=== PATIENT | male | born 1960 | race Caucasian/White ===

== ENCOUNTER → 2024-05-27 10:08 | Outpatient (REF) | payer BC, SELFPAY | LOC: HWRAD 10:08 | PROVIDERS: ATTENDING PHYSICIAN Internal Medicine; FAMILY PHYSICIAN Family Medicine | DX: I25.10 Atherosclerotic heart disease of native coronary artery without angina pectoris (principal); I77.810 Thoracic aortic ectasia | CPT/HCPCS: 76770; 93880 ==

== ENCOUNTER 2024-06-23 22:53 | Inpatient (IN) | payer BC, SELFPAY ==
[2024-06-23] VITALS (9 sets, daily range): BP systolic 114–143; BP diastolic 81–94; BMI 25.3; BMI 24.4
--- NOTE | 2024-06-23 20:07 | ED.GENMED ---
History of Present Illness
<Alan Gillespie MD, Resident - Last Filed: 06/24/24 00:14>
General
Chief Complaint: Cardiac Symptoms
Source: patient and spouse
Time Seen by Provider: 06/23/24 19:33
History of Present Illness
History of Present Illness:
63-year-old male, Mr. Masoud Cyr with past medical history significant for hyperlipidemia presented to the ER reporting retrosternal chest pain, since morning. Patient was doing yard work in the morning, mowing his lawn and he started having
chest pain, SOB, palpitations intermittently. Chest pain is like spasms, radiating to the back, associated with tingling sensation in the left arm and palpitations. Patient also felt lightheaded few times after the lawn work, when he is trying to
stand up/sit up from lying down position. All his symptoms have worsened in the afternoon, and came to the ER for getting evaluated. No headaches, vision changes, nausea/vomiting, abdominal pain, calf pain, hematuria, bowel disturbances, no
history of recent travel. Patient has a family history of UT in father at age 62. Patient is a non-smoker, nonalcoholic, drinks decaffeinated coffee.
Patient reports he sees his adult caregiver regularly, last visit was 1 month ago and he states everything was normal.
Past History
<Alan Gillespie MD, Resident - Last Filed: 06/24/24 00:14>
Past History
ED Past Medical History: Hypercholesterolemia
ED Past Surgical History: Cholecystectomy
Social History
Personal:
Living: with family
Phy Exam
<Alan Gillespie MD, Resident - Last Filed: 06/24/24 00:14>
Physical Exam
Physical Exam:
GEN: Well appearing, NAD, WDWN
Eyes: PERRLA, EOMs intact, no scleral icterus
HENT: NCAT, oral mucosa moist, no JVD, no cervical adenopathy.
Lungs: CTAB, no wheezes, rales, rhonchi, normal chest wall excursion
Cardiac: RRR, S1-S2+, no peripheral edema. Radial pulses 2+ bilat
Abdomen: S, NT, ND, NABS, no masses or hepatosplenomegaly
Neuro: AO x 3, no focal deficits to BUE/BLE, normal sensation throughout
Skin: No rashes, petechiae. Normal color, no pallor or jaundice.
Psych: Calm, cooperative, proper hygiene
Scores
<Alan Gillespie MD, Resident - Last Filed: 06/24/24 00:14>
Heart Score for Chest Pain Patients
Heart Score for Chest Pain Patients: 2
Heart Score Risk: 2.5% MACE over next 6 weeks
<Abner Garcia MD - Last Filed: 06/23/24 21:25>
Heart Score for Chest Pain Patients
STEMI patient?: No
History: Slightly or Non-Suspicious
ECG: Normal
Age: >45 - <65 years
Risk Factors: 1 or 2 Risk Factors
Troponin: </= Normal Limit
Heart Score for Chest Pain Patients: 2
Heart Score Risk: 2.5% MACE over next 6 weeks
Course
<Alan Gillespie MD, Resident - Last Filed: 06/24/24 00:14>
Orders/Labs/Results
Orders:
Orders
06/23/24 19:21
Electrocardiogram (*1) Urgent
Reason for Study: Palpitations
06/23/24 20:08
BNP [NT-proBNP] Urgent
CMP [Comprehensive Metabolic Panel] Urgent
Complete Blood Count/With Diff Urgent
Troponin I Urgent
06/23/24 20:16
CR Chest Portable - 1 View Urgent
Comment:
Reason For Exam: chest pain
Reason Study Needs to be Portable: Patient Unstable
06/23/24 20:33
Aspirin Chewable [Low Strength Aspirin] 324 mg PO NOW STA
06/23/24 20:50
D-Dimer Urgent
PTT Urgent
06/23/24 21:20
Aspirin Enteric Coated 325 mg PO NOW STA
06/23/24 21:30
Heparin 12579 Units/250 ml 25,000 units in 250 ml IV PER PROTOCOL
Weight to be used for heparin protocol in kilograms (kg):: 75.6
Protocol:: Cardiac Tx/Acute Coronary
PTT Goal Range to be used:: PTT 73 to 111 seconds
Order type:: Initial
INITIAL Infusion Dose (UNITS/KG/hr) & then follow protocol:: 12 units/kg/hr
Infusion Dose in UNITS/hr & then follow protocol (UNITS/hr):: 900
INFUSION RATE in mL/hr & then follow protocol (mL/hr):: 9
PTT less than or equal to 64 seconds:: Increase rate by 200 units/hr (+ 2 mL/hr)
PTT 64.1 to 72.9 seconds:: Increase rate by 100 units/hr (+ 1 mL/hr)
PTT 73 to 111 seconds:: Target Range. No change in rate.
PTT 111.1 to 130.9 seconds:: Decrease rate by 100 units/hr (- 1 mL/hr)
PTT 131 to 199.9 seconds:: HOLD for 1 hr. Then decrease rate by 200 units/hr (- 2 mL/hr)
PTT greater than or equal to 200 seconds:: HOLD for 2 hrs & Notify Provider. Then decrease by 200 units/hr (-
2 mL/hr)
Lab follow-up:: Each change, PTT q6h until 2 consecutive are therapeutic. Then PTT
daily.
06/23/24 22:07
EKG [Electrocardiogram (*1)] Urgent
Reason for Study: Chest Pain
06/23/24 22:08
Electrocardiogram (*1) Urgent
Reason for Study: Chest Pain
EKG- Treatment ONCE
Nitroglycerin Sublingual [Nitrostat (Sublingual)] 0.4 mg SL NOW STA
06/23/24 22:09
Admit/Transfer Patient As Directed
Co-Sign Provider:
Level of Care: Inpatient admission
Assign to:: IVU
Physician / Group: [facility]/ [facility]
Diagnosis: ACS
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 trend trops ekgs
Expected length of stay greater than two midnights?: Yes
ELOS- Estimated Length of Stay in days: 3
I certify the patient meets the requirements for IP care: Yes
PRN Pain Medication Management As Directed
May give lesser potent ordered pain med per pt: Yes
preference::
Protocol:: Medication orders for pain may be administered in a
manner that supports deferring to patient preference
when the pt is:
-Requesting an ordered lesser potent pain medication.
Least to most potent pain medications are defined as:
acetaminophen < NSAID < tramadol < opioids (morphine,
oxycodone, hydromorphone).
- Requesting a lesser dose of the same medication IF
ORDERED.
- Requesting a less intrusive route of administration
if both routes are prescribed by the provider (PO <
IV).
06/23/24 22:11
Code Status As Directed
Resuscitation Status: Full Code
06/23/24 23:33
Electrocardiogram (*1) Q6H
Reason for Study: Chest Pain
Comment: at admission and Q3H for total of 3, to be done with each troponin
06/23/24 23:33
Echo 2D MMode Color/Doppler Routine
Reason for Study: chest pain
Heparin Protocol- PTT Orders As Directed
PTT per Heparin protocol: -Obtain CBC and baseline PTT - if not already collected.
-Obtain PTT 6 hours from start of infusion. Then, every 6 hours until 2 consecutive
PTT's are therapeutic. Then, PTT Daily.
-With each rate change, obtain PTT every 6 hours until 2 consecutive PTT's are
therapeutic. Then, PTT Daily.
Activity As Directed
Activity Level: Out of Bed-Early Mobility
INT (Intravenous Needle Therapy) As Directed
Comment: maintain peripheral IV access
Intake/ Output As Directed
Frequency: Per unit guidelines
Notify MD As Directed
Notify physician if: PTT is greater than or equal to 200.
Pneumatic Compression Sleeves As Directed
Type: Knee high
Vital Signs As Directed
Frequency: q4h
Weight As Directed
Frequency: Daily
Pulse Ox/spot Check [RESP] Routine
Quantity: 1
Special Instructions: on admission and then every shift if on oxygen
DX Deep Vein Thrombosis Video Routine
06/23/24 23:49
Glycohemoglobin (HgbA1c) Routine
Troponin I Q6H
Comment: at admit & Q3H for 3 total including ED draws, obtain ECG with each level
06/24/24 05:33
Electrocardiogram (*1) Q6H
Reason for Study: Chest Pain
Comment: at admission and Q3H for total of 3, to be done with each troponin
Troponin I Q6H
Comment: at admit & Q3H for 3 total including ED draws, obtain ECG with each level
06/24/24 Breakfast
NPO
Allow oral meds: No
Allow clear liquids: No
NPO with Ice Chips: No
Basic Metabolic Panel IN AM
Cardiovascular Evaluation IN AM
Complete Blood Count/No Diff IN AM
06/24/24 11:33
Electrocardiogram (*1) Q6H
Reason for Study: Chest Pain
Comment: at admission and Q3H for total of 3, to be done with each troponin
Troponin I Q6H
Comment: at admit & Q3H for 3 total including ED draws, obtain ECG with each level
06/24/24 18:00
Enoxaparin Sodium [Lovenox] 40 mg SC QPM
Rosuvastatin Calcium [Crestor] 20 mg PO QPM
06/25/24 06:00
Complete Blood Count/No Diff Q2D
Comment: notify provider: Platelet count < 130,000 or decrease by 50% from baseline
06/27/24 06:00
Complete Blood Count/No Diff Q2D
Comment: notify provider: Platelet count < 130,000 or decrease by 50% from baseline
06/29/24 06:00
Complete Blood Count/No Diff Q2D
Comment: notify provider: Platelet count < 130,000 or decrease by 50% from baseline
07/01/24 06:00
Complete Blood Count/No Diff Q2D
Comment: notify provider: Platelet count < 130,000 or decrease by 50% from baseline
07/03/24 06:00
Complete Blood Count/No Diff Q2D
Comment: notify provider: Platelet count < 130,000 or decrease by 50% from baseline
07/05/24 06:00
Complete Blood Count/No Diff Q2D
Comment: notify provider: Platelet count < 130,000 or decrease by 50% from baseline
07/07/24 06:00
Complete Blood Count/No Diff Q2D
Comment: notify provider: Platelet count < 130,000 or decrease by 50% from baseline
07/09/24 06:00
Complete Blood Count/No Diff Q2D
Comment: notify provider: Platelet count < 130,000 or decrease by 50% from baseline
Abnormal Lab Results
06/23/24
20:08
RBC 4.36 L 10^6/uL
(4.70-6.10)
Hct 37.4 L %
(39.0-52.0)
MCH 31.2 H pg
(27.0-31.0)
Potassium 3.4 L mmol/L
(3.5-5.1)
Glucose 110 H mg/dl
(70-99)
06/23/24 20:08
06/23/24 20:08
Vital Signs
Initial and Last Documented VS:
Initial Vital Signs
Temp Pulse Resp BP Pulse Ox
97.6 F 73 28 127/84 100
06/23/24 19:21 06/23/24 19:21 06/23/24 19:21 06/23/24 19:21 06/23/24 19:21
Last Documented Vital Signs
Temp Pulse Resp BP Pulse Ox
97.8 F 82 20 114/82 99
06/23/24 23:42 06/23/24 23:00 06/23/24 23:42 06/23/24 23:00 06/23/24 23:42
<Abner Garcia MD - Last Filed: 06/23/24 21:25>
Orders/Labs/Results
Orders:
Orders
06/23/24 19:21
Electrocardiogram (*1) Urgent
Reason for Study: Palpitations
06/23/24 20:08
BNP [NT-proBNP] Urgent
CMP [Comprehensive Metabolic Panel] Urgent
Complete Blood Count/With Diff Urgent
Troponin I Urgent
06/23/24 20:16
CR Chest Portable - 1 View Urgent
Comment:
Reason For Exam: chest pain
Reason Study Needs to be Portable: Patient Unstable
06/23/24 20:33
Aspirin Chewable [Low Strength Aspirin] 324 mg PO NOW STA
06/23/24 20:50
D-Dimer Urgent
PTT Urgent
06/23/24 21:20
Aspirin Enteric Coated 325 mg PO NOW STA
06/23/24 21:30
Heparin 54132 Units/250 ml 25,000 units in 250 ml IV PER PROTOCOL
Weight to be used for heparin protocol in kilograms (kg):: 75.6
Protocol:: Cardiac Tx/Acute Coronary
PTT Goal Range to be used:: PTT 73 to 111 seconds
Order type:: Initial
INITIAL Infusion Dose (UNITS/KG/hr) & then follow protocol:: 12 units/kg/hr
Infusion Dose in UNITS/hr & then follow protocol (UNITS/hr):: 900
INFUSION RATE in mL/hr & then follow protocol (mL/hr):: 9
PTT less than or equal to 64 seconds:: Increase rate by 200 units/hr (+ 2 mL/hr)
PTT 64.1 to 72.9 seconds:: Increase rate by 100 units/hr (+ 1 mL/hr)
PTT 73 to 111 seconds:: Target Range. No change in rate.
PTT 111.1 to 130.9 seconds:: Decrease rate by 100 units/hr (- 1 mL/hr)
PTT 131 to 199.9 seconds:: HOLD for 1 hr. Then decrease rate by 200 units/hr (- 2 mL/hr)
PTT greater than or equal to 200 seconds:: HOLD for 2 hrs & Notify Provider. Then decrease by 200 units/hr (-
2 mL/hr)
Lab follow-up:: Each change, PTT q6h until 2 consecutive are therapeutic. Then PTT
daily.
06/23/24 22:07
EKG [Electrocardiogram (*1)] Urgent
Reason for Study: Chest Pain
06/23/24 22:08
Electrocardiogram (*1) Urgent
Reason for Study: Chest Pain
EKG- Treatment ONCE
Nitroglycerin Sublingual [Nitrostat (Sublingual)] 0.4 mg SL NOW STA
06/23/24 22:09
Admit/Transfer Patient As Directed
Co-Sign Provider:
Level of Care: Inpatient admission
Assign to:: IVU
Physician / Group: [facility]/ [facility]
Diagnosis: ACS
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 trend trops ekgs
Expected length of stay greater than two midnights?: Yes
ELOS- Estimated Length of Stay in days: 3
I certify the patient meets the requirements for IP care: Yes
PRN Pain Medication Management As Directed
May give lesser potent ordered pain med per pt: Yes
preference::
Protocol:: Medication orders for pain may be administered in a
manner that supports deferring to patient preference
when the pt is:
-Requesting an ordered lesser potent pain medication.
Least to most potent pain medications are defined as:
acetaminophen < NSAID < tramadol < opioids (morphine,
oxycodone, hydromorphone).
- Requesting a lesser dose of the same medication IF
ORDERED.
- Requesting a less intrusive route of administration
if both routes are prescribed by the provider (PO <
IV).
06/23/24 22:11
Code Status As Directed
Resuscitation Status: Full Code
06/23/24 23:33
Electrocardiogram (*1) Q6H
Reason for Study: Chest Pain
Comment: at admission and Q3H for total of 3, to be done with each troponin
06/23/24 23:33
Echo 2D MMode Color/Doppler Routine
Reason for Study: chest pain
Heparin Protocol- PTT Orders As Directed
PTT per Heparin protocol: -Obtain CBC and baseline PTT - if not already collected.
-Obtain PTT 6 hours from start of infusion. Then, every 6 hours until 2 consecutive
PTT's are therapeutic. Then, PTT Daily.
-With each rate change, obtain PTT every 6 hours until 2 consecutive PTT's are
therapeutic. Then, PTT Daily.
Activity As Directed
Activity Level: Out of Bed-Early Mobility
INT (Intravenous Needle Therapy) As Directed
Comment: maintain peripheral IV access
Intake/ Output As Directed
Frequency: Per unit guidelines
Notify MD As Directed
Notify physician if: PTT is greater than or equal to 200.
Pneumatic Compression Sleeves As Directed
Type: Knee high
Vital Signs As Directed
Frequency: q4h
Weight As Directed
Frequency: Daily
Pulse Ox/spot Check [RESP] Routine
Quantity: 1
Special Instructions: on admission and then every shift if on oxygen
DX Deep Vein Thrombosis Video Routine
06/23/24 23:49
Glycohemoglobin (HgbA1c) Routine
Troponin I Q6H
Comment: at admit & Q3H for 3 total including ED draws, obtain ECG with each level
06/24/24 05:33
Electrocardiogram (*1) Q6H
Reason for Study: Chest Pain
Comment: at admission and Q3H for total of 3, to be done with each troponin
Troponin I Q6H
Comment: at admit & Q3H for 3 total including ED draws, obtain ECG with each level
06/24/24 Breakfast
NPO
Allow oral meds: No
Allow clear liquids: No
NPO with Ice Chips: No
Basic Metabolic Panel IN AM
Cardiovascular Evaluation IN AM
Complete Blood Count/No Diff IN AM
06/24/24 11:33
Electrocardiogram (*1) Q6H
Reason for Study: Chest Pain
Comment: at admission and Q3H for total of 3, to be done with each troponin
Troponin I Q6H
Comment: at admit & Q3H for 3 total including ED draws, obtain ECG with each level
06/24/24 18:00
Enoxaparin Sodium [Lovenox] 40 mg SC QPM
Rosuvastatin Calcium [Crestor] 20 mg PO QPM
06/25/24 06:00
Complete Blood Count/No Diff Q2D
Comment: notify provider: Platelet count < 130,000 or decrease by 50% from baseline
06/27/24 06:00
Complete Blood Count/No Diff Q2D
Comment: notify provider: Platelet count < 130,000 or decrease by 50% from baseline
06/29/24 06:00
Complete Blood Count/No Diff Q2D
Comment: notify provider: Platelet count < 130,000 or decrease by 50% from baseline
07/01/24 06:00
Complete Blood Count/No Diff Q2D
Comment: notify provider: Platelet count < 130,000 or decrease by 50% from baseline
07/03/24 06:00
Complete Blood Count/No Diff Q2D
Comment: notify provider: Platelet count < 130,000 or decrease by 50% from baseline
07/05/24 06:00
Complete Blood Count/No Diff Q2D
Comment: notify provider: Platelet count < 130,000 or decrease by 50% from baseline
07/07/24 06:00
Complete Blood Count/No Diff Q2D
Comment: notify provider: Platelet count < 130,000 or decrease by 50% from baseline
07/09/24 06:00
Complete Blood Count/No Diff Q2D
Comment: notify provider: Platelet count < 130,000 or decrease by 50% from baseline
Abnormal Lab Results
06/23/24
20:08
RBC 4.36 L 10^6/uL
(4.70-6.10)
Hct 37.4 L %
(39.0-52.0)
MCH 31.2 H pg
(27.0-31.0)
Potassium 3.4 L mmol/L
(3.5-5.1)
Glucose 110 H mg/dl
(70-99)
06/23/24 20:08
06/23/24 20:08
Vital Signs
Initial and Last Documented VS:
Initial Vital Signs
Temp Pulse Resp BP Pulse Ox
97.6 F 73 28 127/84 100
06/23/24 19:21 06/23/24 19:21 06/23/24 19:21 06/23/24 19:21 06/23/24 19:21
Last Documented Vital Signs
Temp Pulse Resp BP Pulse Ox
97.8 F 82 20 114/82 99
06/23/24 23:42 06/23/24 23:00 06/23/24 23:42 06/23/24 23:00 06/23/24 23:42
<Alan Gillespie MD, Resident - Last Filed: 06/24/24 00:14>
MDM/Problems Addressed
Differential Diagnosis Includes:
ACS versus aortic dissection VS stable angina versus vasospastic angina versus pericarditis versus PE.
MDM/Problems Addressed:
Patient is currently asymptomatic during the encounter.
Normotensive at presentation.
EKG�normal sinus rhythm.
CBC, CMP unremarkable except for mild hypokalemia at 3.4, and hyperglycemia at 110.
Troponins normal.
<Alan Gillespie MD, Resident - Last Filed: 06/24/24 00:14>
*Critical Care Note
Total Time (30-74mins, 75-104mins- exclusive of procedures): Not Applicable
ED Attending Note
<Alan Gillespie MD, Resident - Last Filed: 06/24/24 00:14>
-
Portions of this chart may have been created with voice recognition software.� Occasional wrong word or��sound alike� substitutions may have occurred due to the inherent limitations of voice recognition software.
<Abner Garcia MD - Last Filed: 06/23/24 21:25>
ED Attending Note
Patient seen and examined by attending physician: Yes
ED Attending Note:
Patient with history of hypercholesterolemia, presents to ED secondary to sudden onset of chest pain, around 1:30 PM, after he had worked outdoors for approximately 2 hours. Chest pain described as 'spasm', in the middle of chest, nonradiating,
associated with shortness of breath, without any alleviating or exacerbate factors. Denies diaphoresis or nausea. Denies dizziness. Denies back pain. Denies leg pain or swelling. Denies previous history of similar symptoms. Denies smoking.
There is family history heart disease, with his father having had UT at age of 62. Patient states that chest pain has been intermittent, with each episode lasting few minutes at a time. At the time of evaluation ED, patient is without any chest
pain.
Physical Exam
General: no apparent distress, not acutely ill. afebrile.
Head: nc/at. eomi
Neck: supple. no meningeal signs.
Heart: s1/s2 regular rate and rhythm, no murmur. equal radial pulses.
Lungs: no acute respiratory distress. clear bilaterally. chest wall nontender to palpation.
Abdomen: normal bowel sounds. not tender. chest wall nontender to palpation.
Neuro: alert and oriented. no focal neurological deficits
Skin: no rash
Psychiatric: well kept. interactive and cooperative
Extremities: no edema. no calf tenderness. good distal pulses
Patient remained chest pain-free during observation ED, along with unremarkable initial workup. However, patient has been having more frequent episodes prior to presentation to ED, along with family history of heart disease.
Chest calcium score noted to be elevated when obtained in 2021.
Discussed with Dr. Wilkerson, on-call cardiology. Recommends starting patient on aspirin along with heparin protocol, for possible cardiac catheterization in a.m.
Discharge Plan
Departure
Patient Disposition: Admit
Date of Disposition: 06/23/24
Time of Disposition: 21:22
Admit to: IVU
Presentation/result/management discussed w/ accepting MD/DO:
Discharge Problem:
Chest pain
Interventions
Interventions:
*Risk Screen - Suicide Last Done: 06/23/24 19:21
*General Assessment Last Done: 06/23/24 20:07
*Neglect/Abuse Screening Last Done: 06/23/24 19:21
*ED COVID-19 Vaccine History Last Done: 06/23/24 23:46
*Nursing Disposition Last Done: 06/23/24 23:20
ED- Pulmonary Assessment Last Done: 06/23/24 20:10
ED- Cardiac Assessment Last Done: 06/23/24 20:10
Discharge Date and Time
Discharge Date/Time: 06/23/24 23:21
[2024-06-23 20:19] LABS: % Basophils 0.3 % (0-2); % Eosinophils 1.3 % (0-6); % Immature Granulocytes 0.3 % (0-0.5); % Lymphocytes 29.1 % (20.5-51.1); % Monocytes 5.1 % (1.7-9.3); % Neutrophils 63.9 % (42.2-75.2); Absolute Eosinophils 0.1 10^3/uL (0-0.7); Absolute Monocytes 0.3 10^3/uL (0.1-0.6); Absolute Neutrophils 4.3 10^3/uL (1.4-6.5); Hematocrit 37.4 % (39.0-52.0); Hemoglobin 13.6 g/dL (13.0-18.0); Mean Corp Hgb Conc. 36.4 g/dL (33.0-37.0); Mean Corpuscular Hgb 31.2 pg (27.0-31.0); Mean Corpuscular Volume 85.8 fL (80.0-94.0); Mean Platelet Volume 9.8 fL (7.4-10.4); Nucleated Red Blood Cells % 0 % (-); Platelet Count 146 10^3/uL (130-400); Red Blood Cell Count 4.36 10^6/uL (4.70-6.10); Red Cell Dist. Width 11.9 % (11.5-14.5); White Blood Cell Count 6.7 10^3/uL (4.8-10.8)
[2024-06-23 20:31] LABS: ALT (SGPT) 16 U/L (0-50); AST (SGOT) 26 U/L (17-59); Albumin 4.6 g/dl (3.5-5.0); Alkaline Phosphatase 54 U/L (38-126); Blood Urea Nitrogen 17 mg/dl (9-20); Calcium 9.7 mg/dl (8.4-10.2); Carbon Dioxide 23 mmol/L (22-30); Chloride 105 mmol/L (98-107); Estimated Creatinine Clearance 93 ml/min; Glucose 110 mg/dl (70-99); Potassium 3.4 mmol/L (3.5-5.1); Sodium 137 mmol/L (135-145); Total Bilirubin 1.2 mg/dl (0.2-1.3); eGFR > 60.00
[2024-06-23 20:41] LABS: NT-proBNP 27.3 pg/ml; Troponin I < 0.012 ng/ml
[2024-06-23 21:11] LABS: D-Dimer < 0.27 ug/mlFEU (0.00-0.50)
[2024-06-23] MEDS: ASPIRIN ENTERIC COATED 325 MG PO (21:30)
[2024-06-23 21:38] LABS: APTT 26.5 Sec (23.4-35.0)
[2024-06-23] MEDS: HEPARIN 25000 UNITS/250 ML IV (21:51)
--- NOTE | 2024-06-23 23:45 | W.PN.UPDATE ---
Update Note
Progress Note Update
Admission orders placed for this patient. Will be transferred to IVU.
[2024-06-24] VITALS (10 sets, daily range): BP systolic 100–131; BP diastolic 64–80; BMI 24.4
[2024-06-24 00:22] LABS: Troponin I < 0.012 ng/ml
--- NOTE | 2024-06-24 00:42 | PTCARENOTE ---
Pt admitted to IVU ~2340. HR SR. Pt denying any pain or lightheadedness/dizziness. Heparin infusing at 900u/hr. Oriented pt to unit, pt belongings w/ pt. at bedside. Updated pt on plan of care, pt states understanding. CAD booklet given to pt.
Potassium 3.4, spoke with CVNP sue - K supplementation; See MAR. Informed pt to notify RN if any CP, lightheadedness, dizziness, or SOB. Call silva within reach.
[2024-06-24] MEDS: KCL 40 MEQ PO (01:03)
[2024-06-24 05:07] LABS: Hematocrit 38.6 % (39.0-52.0); Hemoglobin 13.8 g/dL (13.0-18.0); Mean Corp Hgb Conc. 35.8 g/dL (33.0-37.0); Mean Corpuscular Hgb 30.9 pg (27.0-31.0); Mean Corpuscular Volume 86.4 fL (80.0-94.0); Mean Platelet Volume 9.8 fL (7.4-10.4); Platelet Count 145 10^3/uL (130-400); Red Blood Cell Count 4.47 10^6/uL (4.70-6.10)
[2024-06-24 05:10] LABS: APTT 61.7 Sec (23.4-35.0)
[2024-06-24 05:21] LABS: Troponin I < 0.012 ng/ml
[2024-06-24 05:40] LABS: Blood Urea Nitrogen 15 mg/dl (9-20); Calcium 9.6 mg/dl (8.4-10.2); Carbon Dioxide 22 mmol/L (22-30); Chloride 108 mmol/L (98-107); Estimated Creatinine Clearance 106 ml/min; Glucose 93 mg/dl (70-99); HDL Cholesterol 41 mg/dl; LDL Cholesterol, Calculated 53 mg/dl; Potassium 4.1 mmol/L (3.5-5.1); Sodium 140 mmol/L (135-145); Total Cholesterol 107 mg/dl (50-199); Triglyceride 67 mg/dl (10-149); Very Low Density Lipoprotein 13 mg/dl (0-30); eGFR > 60.00
--- NOTE | 2024-06-24 08:17 | HPS.HSE ---
Addendum entered and electronically signed by Hilario Beavers MD 06/24/24 12:41:
I saw and examined the patient.
The NURSE PRACTITIONER PER DIEM's note was reviewed and I agree with the note.
Comment: 63 y/o male with CAD (by severely elevated calcium score), dyslipidemia, abnormal EKG (inferior infarct), iRBBB, mildly dilated aortic root 4.0 cm who is here for evaluation of epigastric discomfort.
He has risk factors for CAD and given likely association with this after exertion yesterday concern for unstable angina is present.
- coronary angiography
- further recs to follow
Original Note:
Family Physician
-
Family Physician: Eddie Enriquez
Chief Complaint
-
epigastric discomfort
History of Present Illness
63 y/o male with CAD (by severely elevated calcium score), dyslipidemia, abnormal EKG (inferior infarct), iRBBB, mildly dilated aortic root 4.0 cm who is here for evaluation of epigastric discomfort. Briefly, yesterday AM he did yard work for a few
hours and felt fine. Later in the day, around 2 PM, he developed intermittent epigastric spasms that would take his breath away momentarily. This continued until he came to the IVU around [place]. He is pain free and in no distress at the time of my
assessment.
Medical History
Past Medical History
Past Medical History: Reports CAD, Hypercholesterolemia and Other (as abolve)
Past Surgical History: Reports Other (gall bladder surgery)
Social History
Tobacco: Non-smoker
Personal:
Living: With Family
Family History
Family History: CAD (dad UT age 61-62)
Allergies / Home Medications
Allergies reflects when Allergies were last updated in [facility].
Home Medications with original date entered in [facility]
Allergy/Medication List:
Allergies: aspirin (nausea)- but enteric coated is fine for him and he takes 81 mg daily
Medications: aspirin 81 mg PO daily
coenzyme Q10 100 mg PO daily
Rosuvastatin 20 mg PO QPM
Review of Systems
-
History Source: Patient
A 12 point ROS was completed and negative except as noted: Yes
Respiratory: Reports Trouble Breathing (as described)
Cardiac: Reports Chest Pain (as described)
Physical Exam
Vital Signs
Vital Signs
Temp Pulse Resp BP Pulse Ox
98.2 F 71 20 109/77 99
06/24/24 07:04 06/24/24 04:09 06/24/24 07:04 06/24/24 04:09 06/24/24 07:04
Physical Exam
General: Well Developed, Well Nourished and No Apparent Distress
HEENT: NormoCephalic and Anicteric
Respiratory: Clear and Non Labored Respirations
Cardiac: Regular Rhythm
Skin: Warm and Dry
Neuro: AO x 3
Psych: Calm
Laboratory Results
-
06/24/24 04:41
06/24/24 04:41
Laboratory Results
APTT 61.7 Sec (23.4-35.0) H 06/24/24 04:41
Total Bilirubin 1.2 mg/dl (0.2-1.3) 06/23/24 20:08
AST 26 U/L (17-59) 06/23/24 20:08
ALT 16 U/L (0-50) 06/23/24 20:08
Alkaline Phosphatase 54 U/L (38-126) 06/23/24 20:08
Troponin I Cancelled 06/24/24 11:33
Data Reviewed
-
Diagnostic Radiology: Report Reviewed by me (No evidence of active cardiopulmonary disease.)
Medical Tests (Nuc Med, Echo, EKG etc): Image Personally Visualized and interpreted (EKG NSR 66 BPM) and Report Reviewed by me (echo 05/26/22: Normal left ventricular size, wall thickness and systolic function. Estimated ejection fraction is
55-60%. No significant valvular disease.)
Lab Data: Labs Reviewed by me
Impression/Plan
-
IMPRESSION/PLAN:
Unstable angina:
-this diagnosis is threat to life
-currently CP free
-EKG's without evidence for ischemia. Troponin levels are normal. Echo this AM pending
-on heparin drip (continue for now- this medication requires intensive monitoring for toxicity). Continue ASA- full dose given in ED. Plan for cardiac cath today.
-hgbA1C is pending
CAD:
-coronary calcium score 2021: 684
-Continue ASA and statin
-eval as above
Dyslipidemia:
-stable LDL 53
-continue statin
Hypokalemia:
-replaced and normal now
[2024-06-24] MEDS: ASPIR LOW (ENTERIC COATED) 81 MG PO (08:50)
[2024-06-24 10:44] LABS: Glycohemoglobin (HgbA1c) 5.3 % (4.0-5.6)
[2024-06-24 12:43] LABS: APTT 86.7 Sec (23.4-35.0)
--- NOTE | 2024-06-24 13:35 | PTCARENOTE ---
received patient this am lying in bed with no complaints, at bedside. monitor shows NSR, VSS, IV heparin @ 1100units an hour via left ac infusing well. patient had Echo at bedside. patient will remain NPO for cath today.
[2024-06-24 14:51] LABS: ACT-LR - POC 339 Seconds (116-155)
--- NOTE | 2024-06-24 15:38 | ITS.CL.CATH ---
[employer] - Catheterization
Cardiac Catheterization
Procedure Report:
CARDIAC CATHETERIZATION REPORT
Date of Procedure: 06/24/2024
Referring: Hilario Beavers MD
Indication: Rest chest discomfort with normal cardiac enzymes in patient with history of nonischemic stress test
�
HEMODYNAMIC DATA
AO: 158/100
LV: 158/15
�
LEFT VENTRICULOGRAPHY: Normal left ventricular function with visually estimated EF 65%
�
CORONARY ANGIOGRAPHY
Dominance: Right
Left Main: Very mild distal tapering
LAD: Severe calcification of the proximal LAD with tandem 60% proximal LAD stenoses and otherwise mild luminal irregularities
Circumflex: Mild luminal irregularities
RCA: Mild luminal irregularities
FloWire assessment: At the conclusion of the diagnostic study, the patient underwent FloWire assessment of the LAD. Heparin was used for anticoagulation. An EBU 3.75 guide catheter was used. A MeMeMe pressure wire was advanced into the distal
LAD. iFR measurements were 0.90, 0.91, and 0.91. Though technically negative for flow-limiting disease, these measurements are considered equivocal prompting us to perform FFR. The resting FFR was 0.94. Following an adenosine infusion at 140
mcg/kg/min for 2 minutes, the FFR fell to 0.81. This is consistent with nonflow-limiting disease
�
Closure Device: None-the procedure was performed via the right radial artery. The Hal's test was normal prior to the procedure.
�
Radiation (mGy): 203
DAP (cm2.Gy): 14.8
Fluoroscopy time: 5.3 minutes
�
CONCLUSIONS
1:� Systemic hypertension
2:� Normal left ventricular function with EF 65%
3. Single-vessel CAD as described. The iFR of 0.90 and FFR 0.81 do not meet the ischemic threshold to recommend revascularization
4. Recommend continued aggressive risk factor modification. LDL cholesterol is well-controlled at 56 on rosuvastatin 20 mg daily. I have suggested he purchase a home blood pressure cuff and obtain and record daily AM measurements
5. Patient has been advised to maintain a regular program of exercise and to monitor for the possible development of ischemic symptoms which would prompt reevaluation and probable LAD PCI
�
�
Copy to: Efra Grossman MD, PhD, Eddie Enriquez DO ([place], [place])
�
Silvano Keller MD, FAC, [facility]
--- NOTE | 2024-06-24 16:25 | CM ---
Reviewed chart. Met with Mr and Mrs. Cyr to review discharge plans. He states prior to admission he resides with his spouse in a three story home with two steps to enter. He states he has a bedroom/bathroom on each level. He states prior to
admission he was independent with ambulation and adls. He states he does not have any DME in the home. He states he has a prescription plan and uses [facility]. Medical work-up in progress. The discharge plan is to return home with his spouse
when medically stable.
--- NOTE | 2024-06-24 16:47 | W.DS.TRANS ---
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
-
Discharge Instructions:
Discharge Diagnosis/Procedures Cardiac catheterization
Diet Low Cholesterol
Driving Restrictions No driving for 24 hours
Instructions:
Stand-Alone Forms: DC Instructions- Cath/EP Lab
Changes to Home Medications: Yes
Discharge Medications:
DC Medications w/original date entered in [employer]
aspirin 81 mg chewable tablet 81 mg PO DAILY 06/23/24
coenzyme Q10 100 mg capsule (CoQ-10) 100 mg PO DAILY 06/23/24
rosuvastatin 20 mg tablet 20 mg PO QPM 06/23/24
nitroglycerin 0.4 mg sublingual tablet 0.4 mg sublingual [id number] PRN chest pain #25 tabs 06/24/24
Home Medication Changes
NEW: nitrostat
Pending Results: No
[2024-06-24] MEDS: CRESTOR 20 MG PO (16:51)
--- NOTE | 2024-06-24 19:08 | PTCARENOTE ---
D/C instructions given to patient and , both verbalizes understanding. INT D/C'd, telemetry D/C'd, personal belongings packed and sent home with patient. D/C to home via wc accompanied by staff.
== END 2024-06-24 19:00 | disposition home or self-care (01) | DRG 287 ==
LOC: IVU 22:53
PROVIDERS: Emergency Medicine; Internal Medicine Cardiovascular Disease; Registered Nurse; ADMITTING PHYSICIAN Internal Medicine Cardiovascular Disease; EMERGENCY PHYSICIAN Emergency Medicine; FAMILY PHYSICIAN Family Medicine
PROC: 4A033BC Measurement of Arterial Pressure, Coronary, Percutaneous Approach (ICD-10-PCS; 2024-06-24)
PROC: B2111ZZ Fluoroscopy of Multiple Coronary Arteries using Low Osmolar Contrast (ICD-10-PCS; 2024-06-24)
PROC: 4A023N7 Measurement of Cardiac Sampling and Pressure, Left Heart, Percutaneous Approach (ICD-10-PCS; 2024-06-24)
PROC: B2151ZZ Fluoroscopy of Left Heart using Low Osmolar Contrast (ICD-10-PCS; 2024-06-24)
DX: I25.110 Atherosclerotic heart disease of native coronary artery with unstable angina pectoris (principal); I10 Essential (primary) hypertension
CPT/HCPCS: 71045; 80048; 80053; 80061; 83036; 83880; 84484; 85025; 85027; 85347; 85379; 85730; 93005; 93306; 93458; 93571; 96374; 99285; C1769; C1894; J0153; Q9967

== ENCOUNTER 2024-08-01 15:47 | Emergency (ER) | payer BC, SELFPAY ==
[2024-08-01 15:50] VITALS: BP 143/83; BMI 25.8
[2024-08-01 16:04] LABS: % Basophils 0.4 % (0-2); % Eosinophils 1.6 % (0-6); % Immature Granulocytes 0.4 % (0-0.5); % Lymphocytes 27.8 % (20.5-51.1); % Monocytes 4.7 % (1.7-9.3); % Neutrophils 65.1 % (42.2-75.2); Absolute Eosinophils 0.1 10^3/uL (0-0.7); Absolute Lymphocytes 1.9 10^3/uL (1.2-3.4); Absolute Monocytes 0.3 10^3/uL (0.1-0.6); Absolute Neutrophils 4.4 10^3/uL (1.4-6.5); Hematocrit 38.8 % (39.0-52.0); Hemoglobin 13.7 g/dL (13.0-18.0); Mean Corp Hgb Conc. 35.3 g/dL (33.0-37.0); Mean Corpuscular Hgb 30.7 pg (27.0-31.0); Mean Platelet Volume 10.2 fL (7.4-10.4); Nucleated Red Blood Cells % 0 % (-); Platelet Count 158 10^3/uL (130-400); Red Blood Cell Count 4.46 10^6/uL (4.70-6.10); Red Cell Dist. Width 13.1 % (11.5-14.5); White Blood Cell Count 6.8 10^3/uL (4.8-10.8)
--- NOTE | 2024-08-01 16:10 | ED.GENMED ---
History of Present Illness
General
Chief Complaint: Chest Pain
Time Seen by Provider: 08/01/24 15:54
History of Present Illness
History of Present Illness:
64-year-old coronary artery disease presents to the emergency department for evaluation of acute onset chest pain, palpitations and near syncope that developed at 1530 today. Symptoms have since improved. States that the symptoms were not
comparable to his prior angina that led to a cardiac catheterization on June 24 showing mild disease in the LAD approximately 60%, at that time no coronary interventions were undertaken. He has been compliant with his medications at home.
Past History
Past History
ED Past Medical History: Hypercholesterolemia
ED Past Surgical History: Cholecystectomy
Social History
Personal:
Living: with family
Review of Systems
Review of Systems
Allergies reviewed?: Yes
All Other Systems: ROS reviewed and negative except as documented in HPI and ROS
Phy Exam
Physical Exam
Physical Exam:
GEN: Well appearing, NAD, WDWN
HEENT: Oral mucosa moist, no scleral icterus
Cardiac: Regular rate and rhythm, no murmurs
Lung: No respiratory distress, no tachypnea, lungs clear to auscultation bilaterally
MSK: No gross deformity or injuries
Skin: Good color, no pallor or jaundice, no rashes
Neuro: AO x3, moves all extremities freely
Psych: Calm, cooperative
Scores
Heart Score for Chest Pain Patients
STEMI patient?: No
History: Moderately Suspicious
ECG: Normal
Age: >45 - <65 years
Risk Factors: >/= 3 Risk Factors or History of CAD
Troponin: </= Normal Limit
Heart Score for Chest Pain Patients: 4
Heart Score Risk: 20.3% MACE over next 6 weeks
Course
Orders/Labs/Results
Orders:
Orders
08/01/24 15:54
Electrocardiogram (*1) Urgent
Reason for Study: Chest Pain
EKG- Treatment ONCE
08/01/24 15:56
Complete Blood Count/With Diff Urgent
Comprehensive Metabolic Panel Urgent
Troponin I Urgent
08/01/24 16:38
EKG- Treatment ONCE
08/01/24 19:00
EKG [Electrocardiogram (*1)] Routine
Reason for Study: Chest Pain
Troponin I Routine
Abnormal Lab Results
08/01/24
15:56
RBC 4.46 L 10^6/uL
(4.70-6.10)
Hct 38.8 L %
(39.0-52.0)
Carbon Dioxide 20 L mmol/L
(22-30)
08/01/24 15:56
08/01/24 15:56
Vital Signs
Initial and Last Documented VS:
Initial Vital Signs
Temp Pulse Resp BP Pulse Ox
98.8 F 89 19 143/83 100
08/01/24 15:50 08/01/24 15:50 08/01/24 15:50 08/01/24 15:50 08/01/24 15:50
Last Documented Vital Signs
Temp Pulse Resp BP Pulse Ox
98.8 F 84 23 143/78 96
08/01/24 15:50 08/01/24 20:00 08/01/24 20:00 08/01/24 20:00 08/01/24 20:00
MDM/Problems Addressed
MDM/Problems Addressed:
Patient's initial and delta troponins were reassuring. He had no further episodes comparable to his initial presenting symptom while in the emergency department. No events detected on telemetry. Recommend close cardiology follow-up
Comment
Comment:
EKG independently interpreted by me shows normal sinus rhythm with no ST changes concerning for ischemia
*Critical Care Note
Total Time (30-74mins, 75-104mins- exclusive of procedures): Not Applicable
ED Attending Note
-
Portions of this chart may have been created with voice recognition software.� Occasional wrong word or��sound alike� substitutions may have occurred due to the inherent limitations of voice recognition software.
Discharge Plan
Departure
Patient Disposition: Home (Routine Discharge)
Date of Disposition: 08/01/24
Time of Disposition: 19:58
Patient with high blood pressure during this ER visit?: No
Discharge Problem:
Chest pain
Instructions: Chest Pain CBC Follow Up
Prescriptions:
No Action
aspirin 81 mg Tablet,Chewable
81 mg PO DAILY
rosuvastatin 20 mg Tablet
20 mg PO QPM
coenzyme Q10 [CoQ-10] 100 mg Capsule
100 mg PO DAILY
nitroglycerin 0.4 mg tablet, sublingual
0.4 mg sublingual [id number] PRN (Reason: chest pain) Qty: 25 2RF
Referrals:
Eddie Enriquez DO [Family Provider] -
Interventions
Interventions:
*Risk Screen - Suicide Last Done: 08/01/24 15:54
*General Assessment Last Done: 08/01/24 15:54
*Neglect/Abuse Screening Last Done: 08/01/24 15:54
ED- Fall Risk Assessment Last Done: 08/01/24 18:30
*ED COVID-19 Vaccine History Last Done: 08/01/24 15:54
*Nursing Disposition Last Done: 08/01/24 20:06
ED- Cardiac Assessment Last Done: 08/01/24 16:00
Discharge Date and Time
Discharge Date/Time: 08/01/24 20:06
Print Language: ROMANSH
[2024-08-01 16:24] LABS: ALT (SGPT) 21 U/L (0-50); AST (SGOT) 31 U/L (17-59); Albumin 4.7 g/dl (3.5-5.0); Alkaline Phosphatase 52 U/L (38-126); Blood Urea Nitrogen 14 mg/dl (9-20); Calcium 9.8 mg/dl (8.4-10.2); Carbon Dioxide 20 mmol/L (22-30); Chloride 104 mmol/L (98-107); Estimated Creatinine Clearance 91 ml/min; Glucose 93 mg/dl (70-99); Potassium 3.8 mmol/L (3.5-5.1); Sodium 144 mmol/L (135-145); Total Bilirubin 1.3 mg/dl (0.2-1.3); Total Protein 7.1 g/dl (6.3-8.2); eGFR > 60.00
[2024-08-01 16:31] LABS: Troponin I < 0.012 ng/ml
[2024-08-01 17:00] VITALS: BP 139/75
[2024-08-01 18:00] VITALS: BP 127/72
[2024-08-01 19:00] VITALS: BP 122/72
[2024-08-01 19:30] LABS: Troponin I < 0.012 ng/ml
[2024-08-01 20:00] VITALS: BP 143/78
== END 2024-08-01 20:06 | disposition home or self-care (01) ==
LOC: EMR 15:47
PROVIDERS: Physician Assistant; EMERGENCY PHYSICIAN Student in an Organized Health Care Education/Training Program; FAMILY PHYSICIAN Family Medicine
DX: R07.89 Other chest pain (principal)
CPT/HCPCS: 99284; 80053; 84484; 85025; 93005

== ENCOUNTER → 2024-09-24 13:06 | Outpatient (REF) | payer BC, SELFPAY | LOC: RAD 13:06 | PROVIDERS: ATTENDING PHYSICIAN Internal Medicine; FAMILY PHYSICIAN Family Medicine | DX: I25.10 Atherosclerotic heart disease of native coronary artery without angina pectoris (principal); M79.604 Pain in right leg; M79.605 Pain in left leg | CPT/HCPCS: 93922; 93925 ==

== ENCOUNTER → 2025-04-29 12:00 | Outpatient (REF) | payer BC, SELFPAY | LOC: RAD 12:00 | PROVIDERS: ATTENDING PHYSICIAN Family Medicine | DX: M62.50 Muscle wasting and atrophy, not elsewhere classified, unspecified site (principal); R63.4 Abnormal weight loss; M54.9 Dorsalgia, unspecified; G89.29 Other chronic pain; M54.50 Low back pain, unspecified; R10.9 Unspecified abdominal pain | CPT/HCPCS: 74177; Q9967 ==

== ENCOUNTER → 2025-05-06 11:16 | Outpatient (REF) | payer BC, SELFPAY | LOC: HWRAD 11:16 | PROVIDERS: ATTENDING PHYSICIAN Family Medicine | DX: N28.1 Cyst of kidney, acquired (principal) | CPT/HCPCS: 76770 ==

== ENCOUNTER → 2025-06-18 10:17 | Outpatient (REF) | payer BC, SELFPAY | LOC: HWRCS 10:17 | PROVIDERS: ATTENDING PHYSICIAN Internal Medicine; FAMILY PHYSICIAN Family Medicine | DX: I25.10 Atherosclerotic heart disease of native coronary artery without angina pectoris (principal); I77.810 Thoracic aortic ectasia | CPT/HCPCS: 93306 ==